=== PATIENT | male | born 1990 | race Caucasian/White ===

== ENCOUNTER 2023-07-12 04:17 | Emergency (ER) | payer OTHER, SELFPAY ==
[2023-07-12 04:17] VITALS: BMI 30.6
[2023-07-12 04:21] VITALS: BP 133/85
--- NOTE | 2023-07-12 05:07 | ED.GENMED ---
History of Present Illness
General
Chief Complaint: Throat Problem
Source: patient
Exam Limitations: none
Time Seen by Provider: 07/12/23 04:36
Nursing documentation reviewed up to this point in time: agreed with
Travel History
Have you had any contact with someone who has COVID-19?: No
Do you have any symptoms of coronavirus? Fever > 100 degrees, chills, cough, shortness of breath, sore throat, loss of taste or smell, muscle aches, or headache?: No
History of Present Illness
History of Present Illness:
Pleasant 33-year-old male presents with right sided neck pain, fullness, and throbbing. Patient has reported pressure earlier in the week. He went to urgent care and was told that he had 'dehydration' to blame for his symptoms. Patient tried just
Tylenol for the pain and does report any relief. Denies fever, chills, nausea or vomiting. Has no dental pain. Reports no hearing loss or ear pain. No intraoral pain. Denies problems swallowing.
Review of Systems
Review of Systems
Allergies reviewed?: Yes
All Other Systems: ROS reviewed and negative except as documented in HPI and ROS
Constitutional: Reports fever
EENT: Denies no symptoms, tearing, sore throat, mouth pain, mouth swelling or runny nose
Neurological: Denies dizzy, headache, weakness or numbness
Psychiatric: Reports anxiety
Phy Exam
General Physical Exam
General Presentation: well appearing and no apparent distress
General Skin: warm and dry
General Habitus: normal
General Mental: alert
General Hydration: appears well hydrated
ENT Exam
ENT Exam: EOMI, pharynx normal, neck supple and normocephalic
Eye Exam
Eye Exam: PERRL, cornea clear and conjunctiva normal
Cardiovascular Exam
Cardiovascular Exam: regular rate/rhythm, no edema, no murmur and normal peripheral pulses
Pulmonary Exam
Pulmonary Exam: lungs clear, no respiratory distress, no rales, no crackles, no rhonchi, no stridor, no wheezing and no cough
Gastrointestinal Exam
Gastrointestinal Exam: normal bowel sounds, non tender, soft, no organomegaly, no pulsatile mass and non distended
Neurological Exam
Neurological Exam: alert, oriented x3, no motor deficits and speech normal
Musculoskeletal Exam
Musculoskeletal Exam: full ROM and no edema
Skin Exam
Skin Exam: normal color, warm/dry, no rash and no petechia
Psychiatric Exam
Psychiatric Exam: normal mood/affect
Comment
comment:
No carotid bruit. Bite test is negative bilaterally. There is a small amount of fullness to the right side of his neck. External ear exam is normal. Tympanic membrane is glossy and white. Internal: His teeth are all intact. Pain is not
reproducible with bite. No obvious buccal abscess. In the soft tissue neck there appears to be a lump in his neck.
Patient is hypothyroid and insulin-dependent diabetic.
Course
Orders/Labs/Results
Orders:
Orders
07/12/23 04:36
CT Neck With Iv Contrast Urgent
Comment:
Reason For Exam: r sided neck pain and swelling
07/12/23 05:13
Comprehensive Metabolic Panel Urgent
TSH Urgent
07/12/23 05:14
Complete Blood Count/With Diff Urgent
Abnormal Lab Results
07/12/23 07/12/23
05:13 05:14
MCH 32.3 H pg
(27.0-31.0)
Carbon Dioxide 31 H mmol/L
(22-30)
Glucose 114 H mg/dl
(70-99)
07/12/23 05:14
07/12/23 05:13
Vital Signs
Initial and Last Documented VS:
Initial Vital Signs
Temp Pulse Resp BP Pulse Ox
98.8 F 73 14 133/85 99
07/12/23 04:21 07/12/23 04:21 07/12/23 04:21 07/12/23 04:21 07/12/23 04:21
Last Documented Vital Signs
Temp Pulse Resp BP Pulse Ox
98.8 F 87 18 122/88 99
07/12/23 04:21 07/12/23 05:16 07/12/23 05:16 07/12/23 05:16 07/12/23 05:30
*Critical Care Note
Total Time (30-74mins, 75-104mins- exclusive of procedures): Not Applicable
Update Note
Update Note:
CT neck
IMPRESSION:
Adducted glottis; upper airway is otherwise patent.
No neck mass, fluid collection or pathologically enlarged lymph nodes
Parotid, submandibular and thyroid glands appear normal
Lung apices are clear
Major vessels are patent.
Visualized sinuses are clear
ED Attending Note
-
Portions of this chart may have been created with voice recognition software.� Occasional wrong word or��sound alike� substitutions may have occurred due to the inherent limitations of voice recognition software.
Discharge Plan
Departure
Patient Disposition: Home (Routine Discharge)
Date of Disposition: 07/12/23
Time of Disposition: 07:10
Patient with high blood pressure during this ER visit?: Yes
Discharge Problem:
Acute neck pain, Throat pain
Instructions: Dysphagia (DC), BLOOD PRESSURE
Referrals:
Jason Chirinos MD [Family Provider] -
Yoly Shore MD [Active] -
Activity Restrictions/Additional Instructions:
It was a pleasure meeting you and taking part in your care. We hope for your continued healing and wellness.
Please read discharge instructions in their entirety. However, they are for general education and may not describe your exact diagnosis at discharge. Information on your ER visit and medical conditions were discussed with you along with appropriate
follow up information...
If indicated, please take your medications as instructed and indicated on discharge paperwork.
Please schedule a follow up appointment as directed. Call to schedule an appointment
Please return to the emergency department with ANY change in, persisting, or worsening of symptoms. If any of your symptoms do not improve, or persist, or become more severe within 6-12 hours, please return to the emergency department for further
care.
Please return to the emergency department if you develop a headache, neck pain/stiffness, fever greater than 100.4F, chest pain, shortness of breath, persistent nausea, vomiting, slurred speech, difficulty walking, numbness/tingling, weakness, signs
of infection or any other symptoms that are worrisome to you.
If you have any questions or concerns please do not hesitate to call the Hospital at or E-mail me directly at [email or web address]
Interventions
Interventions:
*Risk Screen - Suicide Last Done: 07/12/23 04:21
*General Assessment Last Done: 07/12/23 04:21
*Neglect/Abuse Screening Last Done: 07/12/23 04:21
ED-EENT Assessment Last Done: 07/12/23 05:30
ED- Pulmonary Assessment Last Done: 07/12/23 05:30
Discharge Date and Time
Print Language: [place]
[2023-07-12 05:16] VITALS: BP 122/88
[2023-07-12 05:24] LABS: % Basophils 1.5 % (0-2); % Eosinophils 3.4 % (0-6); % Immature Granulocytes 0.2 % (0-0.5); % Lymphocytes 28.7 % (20.5-51.1); % Monocytes 9.2 % (1.7-9.3); Absolute Basophils 0.1 10^3/uL (0-0.2); Absolute Eosinophils 0.2 10^3/uL (0-0.7); Absolute Lymphocytes 1.5 10^3/uL (1.2-3.4); Absolute Monocytes 0.5 10^3/uL (0.1-0.6); Hematocrit 43.3 % (39.0-52.0); Hemoglobin 15.8 g/dL (13.0-18.0); Mean Corp Hgb Conc. 36.5 g/dL (33.0-37.0); Mean Corpuscular Hgb 32.3 pg (27.0-31.0); Mean Corpuscular Volume 88.5 fL (80.0-94.0); Mean Platelet Volume 9.8 fL (7.4-10.4); Nucleated Red Blood Cells % 0 % (-); Platelet Count 264 10^3/uL (130-400); Red Blood Cell Count 4.89 10^6/uL (4.70-6.10); Red Cell Dist. Width 11.7 % (11.5-14.5); White Blood Cell Count 5.2 10^3/uL (4.8-10.8)
[2023-07-12 05:49] LABS: ALT (SGPT) 30 U/L (0-50); AST (SGOT) 30 U/L (17-59); Albumin 4.6 g/dl (3.5-5.0); Alkaline Phosphatase 68 U/L (38-126); Blood Urea Nitrogen 13 mg/dl (9-20); Calcium 9.6 mg/dl (8.4-10.2); Carbon Dioxide 31 mmol/L (22-30); Chloride 104 mmol/L (98-107); Estimated Creatinine Clearance > 125 ml/min; Glucose 114 mg/dl (70-99); Potassium 4.3 mmol/L (3.5-5.1); Sodium 141 mmol/L (135-145); Total Bilirubin 0.5 mg/dl (0.2-1.3); Total Protein 7.4 g/dl (6.3-8.2); eGFR > 60.00
[2023-07-12 06:14] LABS: TSH 1.89 uIU/ml (0.47-4.68)
[2023-07-12 07:34] VITALS: BP 126/79
== END 2023-07-12 07:36 | disposition home or self-care (01) ==
LOC: EMR 04:17
PROVIDERS: EMERGENCY PHYSICIAN Student in an Organized Health Care Education/Training Program; FAMILY PHYSICIAN Internal Medicine
DX: M54.2 Cervicalgia (principal); R07.0 Pain in throat
CPT/HCPCS: 99284; 70491; 80053; 84443; 85025; Q9967